=== PATIENT | male | born 1960 | race Caucasian/White ===

== ENCOUNTER 2021-02-13 11:57 | Emergency (ER) | payer BC ==
[~2021-02-13 11:57] MED LIST: [UNRECOGNIZED DRUG - OTHER]
[2021-02-13] MEDS ORDERED: LEVOTHYROXINE0.05 MG PO (12:09)
[2021-02-13 12:52] VITALS: BP 152/72
== END 2021-02-13 12:52 | disposition home or self-care (01) ==
LOC: ED 11:57
DX: S01.01XA Laceration without foreign body of scalp, initial encounter (principal); E03.9 Hypothyroidism, unspecified; Z79.890 Hormone replacement therapy; W01.0XXA Fall on same level from slipping, tripping and stumbling without subsequent striking against object, initial encounter; Y92.009 Unspecified place in unspecified non-institutional (private) residence as the place of occurrence of the external cause
CPT/HCPCS: 90715